=== PATIENT | female | born 1950 | race Caucasian/White ===

== ENCOUNTER 2019-03-06 13:07 | Outpatient (CLI) | payer MEDICARE | END 2019-03-06 23:59 | disposition home or self-care (01) | LOC: CFH 13:07 | PROVIDERS: ATTEND Surgery Surgical Oncology | DX: D05.11 Intraductal carcinoma in situ of right breast (principal) | CPT/HCPCS: 77066; G0279 ==

== ENCOUNTER 2020-03-16 07:08 | Outpatient (CLI) | payer MEDICARE | END 2020-03-16 23:59 | disposition home or self-care (01) | LOC: CFH 07:08 | PROVIDERS: ATTEND Surgery Surgical Oncology | DX: Z12.31 Encounter for screening mammogram for malignant neoplasm of breast (principal); D05.11 Intraductal carcinoma in situ of right breast; Z90.11 Acquired absence of right breast and nipple; Z85.3 Personal history of malignant neoplasm of breast | CPT/HCPCS: 76641; 77063; 77067 ==